=== PATIENT | female | born 1945 | race Caucasian/White ===

== ENCOUNTER → 2017-03-22 | Outpatient (CLI) | payer MEDICARE ==
[~2017-03-22] MED LIST: ALE70 PO; AMIT-106 PO; AMIT-108 PO; AMLO-96 PO; AMLO-99 PO; ATOR10TA24 PO; ATOR40TA69 PO; BUPR300T55 PO; BUTA1CAP4 PO; CHOL10005 PO; CYCL-277 PO; CYCL10TA PO; DEXL60CA6 PO; DICY20TA70 PO; DON PO; ESOM40CA42 PO; ESTR0.5T16 PO; ESTR1.2525 PO; FLU180SY9 IM; FLU45SYR25 IM ONLY; HYDR-385 PO; HYDR12.561 PO; HYOS-49 PO; HYOS0.1224 SL; LISI-362 PO; LISI5TAB25 PO; LOSA100T67 PO; LOSA50TA72 PO; MECL25TA9 PO; MELO-149 PEG; MELO-149 PO; METO-231 PO; METO-235 PO; METO50TA19 PO; MUP2T TOP; NAP500 PO; ONDA4TAB97 PO; OXYC20OR PO; OXYC20TA86 PO; PARO10TA80 PO; PNEU0.5D3 IM; PREG25 PO; PRO25 PO; PROM12.556 PO; QUE100 PO; RIFA550T PO; ROPI0.2527 PO; SERT-184 PO; SUMA100T32 PO; TOPI100T PO; TRA50 PO; TRAM-420 PO; [UNRECOGNIZED DRUG - CODE]
[2017-03-22 14:23] LABS: PLATELET COUNT, AUTOMATED 433 K/uL (150-450)
== END ==
LOC: LAB 14:11
PROVIDERS: ATTEND Internal Medicine
DX: R10.9 Unspecified abdominal pain (principal); I10 Essential (primary) hypertension
CPT/HCPCS: 36415; 82040; 82150; 82247; 82310; 82374; 82435; 82565; 82947; 83690; 84075; 84132; 84155; 84295; 84443; 84450; 84460; 84520; 85025

== ENCOUNTER → 2017-03-29 | Outpatient (CLI) | payer MEDICARE ==
--- NOTE | 2017-03-29 10:43 | RADIOLOGY IMAGING REPORT ---
FACILITY: [facility] - [place] PATIENT NAME: Fiorella Hall : 1945 MR: [id number] V: [id number] EXAM DATE: ORDERING PHYSICIAN: CECILIA LAWRENCE TECHNOLOGIST: Location: [facility] Patient: Fiorella Hall : 1945 Visit/Account:[id number] Date of Sevice: 03/29/2017 GALLBLADDER HISTORY: Back pain COMPARISON: January 30, 2014 FINDINGS: Gallbladder: Unremarkable; no stones or sludge. Liver: Negative. Common duct: Normal, 2.6 mm diameter. Pancreas: Partially obscured by bowel, visualized aspects unremarkable. Right kidney: Unremarkable as imaged measuring 9.6 cm in length Upper abdominal aorta and IVC: Patent. Ascites: None visualized. IMPRESSION: Unremarkable right upper quadrant ultrasound Report Dictated By: Esmer Porter MD at 03/29/2017 10:32 AM Report E-Signed By: Esmer Porter MD at 03/29/2017 10:39 AM WSN:[email or web address]
== END ==
LOC: US 01:56
PROVIDERS: ATTEND Nurse Practitioner Family
DX: R10.9 Unspecified abdominal pain (principal); R11.10 Vomiting, unspecified
CPT/HCPCS: 76705

== ENCOUNTER → 2017-04-07 | Outpatient (CLI) | payer MEDICARE ==
--- NOTE | 2017-04-08 11:44 | RADIOLOGY IMAGING REPORT ---
FACILITY: [facility] PATIENT NAME: JIGNA RESENDIZ : [id number] MR: [id number] V: [id number] EXAM DATE: [id number] ORDERING PHYSICIAN: CECILIA LAWRENCE TECHNOLOGIST: Nataliia Nash PROCEDURE:BILATERAL DIGITAL SCREENING MAMMOGRAM WITH CAD ASSISTED INTERPRETATION & 3D BREAST TOMOSYNTHYSIS COMPARISON:Prior mammograms 04/06/16, 04/11/14, 02/20/14, 02/16/13 INDICATIONS:SCREENING FINDINGS: Moderately dense fibroglandular tissue is seen throughout the breasts. Most of the parenchymal pattern has remained stable allowing for difference in mammographic technique & patient positioning. There is a small grouping of slightly pleomorphic calcifications Zone 3 lateral aspect of the right breast on the right CC view & appear to be in the upper portion of the right breast on the right MLO view. Spot magnification views of these calcifications recommended for further evaluation. Posterior to the mid nipple line Zone on the left CC view there is also a suggestion of faintly grouped round calcifications which spot magnification views are recommended. DIAGNOSTIC CATEGORY 0--INCOMPLETE: NEED ADDITIONAL IMAGING EVALUATION. RECOMMENDATIONS: ADDITIONAL MAMMOGRAPHIC VIEWS REQUIRED: BILATERAL BREASTS. IMPRESSION: BIRADS 0: Incomplete - need additional imaging evaluation. 1. Additional views both breasts recommended as described. Dictated by: Esmer Porter M.D. on 04/07/2017 at 15:06 Transcribed by: CATHLEEN on 04/08/2017 at 10:48 Approved by: Esmer Porter M.D. on 04/08/2017 at 11:43 [facility]
== END ==
LOC: MAMO 02:05
PROVIDERS: ATTEND Nurse Practitioner Family
DX: Z12.31 Encounter for screening mammogram for malignant neoplasm of breast (principal); R92.8 Other abnormal and inconclusive findings on diagnostic imaging of breast
CPT/HCPCS: 77063; 77067

== ENCOUNTER → 2017-04-18 | Outpatient (REF) | payer MEDICARE | LOC: ZZSENDIN 09:30 | PROVIDERS: ATTEND Nurse Practitioner Family | DX: R10.9 Unspecified abdominal pain (principal) | CPT/HCPCS: 87338 ==

== ENCOUNTER → 2017-04-18 | Outpatient (CLI) | payer MEDICARE ==
--- NOTE | 2017-04-19 10:30 | RADIOLOGY IMAGING REPORT ---
FACILITY: [facility] PATIENT NAME: JIGNA RESENDIZ : [id number] MR: [id number] V: [id number] EXAM DATE: ORDERING PHYSICIAN: CECILIA LAWRENCE TECHNOLOGIST: Nataliia Nash PROCEDURE:BILATERAL DIAGNOSTIC DIGITAL MAMMOGRAM WITH CAD AND 3D BREAST TOMOSYNTHESIS. COMPARISON:Prior mammograms dated 04/07/17, 04/06/16, 03/11/15, 02/20/14 and 02/16/13. INDICATIONS:ABN MAMMO FINDINGS: The patient received spot magnification views in the right CC, right MLO and left CC projections. Moderately dense fibroglandular tissue is seen throughout the breasts. The parenchymal pattern has remained stable when allowing for difference in mammographic technique and patient positioning. There is a small grouping of round calcifications in the upper outer quadrant of the right breast in zone 3 and may have been present on the prior study although difficult to evaluate directly due to the difference in imaging technology. There is no branching or pleomorphism on the magnified images. There is a subtle group of round calcifications posterior to mid-nipple line on the left CC view. Bilateral diagnostic mammogram recommended in six months to document stability of above findings unless clinical findings warrant more immediate attention. DIAGNOSTIC CATEGORY 3--PROBABLY BENIGN FINDING. RECOMMENDATIONS: SIX MONTH FOLLOW-UP DIAGNOSTIC MAMMOGRAM: BILATERAL BREASTS. IMPRESSION: Bi-RADS 3: A six month followup bilateral diagnostic mammogram recommended as described above. Images were reviewed with R2CAD and 3D breast tomosynthesis. Dictated by: Esmer Porter M.D. on 04/18/2017 at 16:54 Transcribed by: JOSE on 04/18/2017 at 22:07 Approved by: Esmer Porter M.D. on 04/19/2017 at 10:28 [facility]
== END ==
LOC: MAMO 01:40
PROVIDERS: ATTEND Nurse Practitioner Family
DX: R92.1 Mammographic calcification found on diagnostic imaging of breast (principal)
CPT/HCPCS: 77062; 77066

== ENCOUNTER 2017-04-21 00:14 | Day surgery (SDC) | payer MEDICARE ==
[~2017-04-21] VITALS: Ht 170.2 cm; Wt 49.0 kg
[2017-04-21] MEDS ORDERED: PROPOFOL EMUL(*) 10MG/ML 20 ML 20 ML ONE (07:10)
[2017-04-21 10:55] VITALS: BP 151/103
[2017-04-21] MEDS ORDERED: NORMOSOL R SOLN(*) 1000 ML BAG 1,000 ML IV PRN (13:00)
[2017-04-21] MEDS ORDERED: LIDOCAINE/SOD BICARB 8.4% SYR ID ONE (13:00)
[2017-04-21] MEDS ORDERED: MIDAZOLAM 2 MG/2 ML VIAL IVP PRN (13:00)
[2017-04-21 13:04] VITALS: BP 130/90
[2017-04-21 13:15] VITALS: BP 124/88
[2017-04-21 13:29] VITALS: BP 121/79
[2017-04-21 13:30] VITALS: BP 124/80
[2017-04-26] MEDS ORDERED: ATOR40TA69 PO (13:13)
== END 2017-04-21 13:50 | disposition short-term general hospital (02) ==
LOC: OR 00:14
PROVIDERS: ATTEND Internal Medicine Gastroenterology
DX: K44.9 Diaphragmatic hernia without obstruction or gangrene (principal); K20.9 Esophagitis, unspecified; K29.70 Gastritis, unspecified, without bleeding; K59.00 Constipation, unspecified; R19.7 Diarrhea, unspecified; K64.8 Other hemorrhoids; K57.30 Diverticulosis of large intestine without perforation or abscess without bleeding; L53.9 Erythematous condition, unspecified
CPT/HCPCS: 00811; 43239; 45380; 88305; 88313; 88344; J2704

== ENCOUNTER → 2017-04-22 | Outpatient (CLI) | payer MEDICARE | LOC: LAB 14:59 | PROVIDERS: ATTEND Nurse Practitioner Family | DX: R94.6 Abnormal results of thyroid function studies (principal) | CPT/HCPCS: 36415; 84439; 84443; 84480 ==

== ENCOUNTER 2017-05-09 00:59 | Outpatient (RCR) | payer MEDICARE ==
--- NOTE | 2017-05-10 13:25 | RADIOLOGY IMAGING REPORT ---
FACILITY: [facility] [place] PATIENT NAME: Fiorella Hall : 1945 MR: [id number] V: [id number] EXAM DATE: ORDERING PHYSICIAN: CECILIA LAWRENCE TECHNOLOGIST: Location: [facility] [place] Patient: Fiorella Hall : 1945 Visit/Account:[id number] Date of Sevice: 05/09/2017 Examination: Nuclear medicine thyroid uptake and scan Comparison: None. History: Subclinical hyperthyroidism Procedure: Following the uneventful administration of 0.36 mCi I-123 enteric on 05/09/2017 the patient returns for standard pinhole imaging of the thyroid and calculation of 24-hour uptake. Findings: Homogeneous iodine distribution throughout the thyroid with no hot or cold nodule. 6 hour iodine uptake is 14%. 24 hour iodine uptake is 31%. 24 hour normal range is 10-30%. IMPRESSION: 1. No hot or cold thyroid nodule. 2. Borderline elevated 24 hour iodine uptake of 31%. Report Dictated By: Gene Quintero MD at 05/10/2017 1:14 PM Report E-Signed By: Gene Quintero MD at 05/10/2017 1:21 PM WSN:[id number]
[2017-05-20] MEDS ORDERED: PROM12.556 PO (12:02)
[2017-05-25] MEDS ORDERED: PROM12.556 PO (09:26)
== END 2017-05-09 18:00 | disposition home or self-care (01) ==
LOC: NUC 00:59 → EDSTATUS 14:11 → NUC 18:00
PROVIDERS: ATTEND Nurse Practitioner Family
DX: E05.90 Thyrotoxicosis, unspecified without thyrotoxic crisis or storm (principal)
CPT/HCPCS: 78014; A9516

== ENCOUNTER → 2017-05-19 | Outpatient (CLI) | payer MEDICARE | LOC: LAB 13:11 | PROVIDERS: ATTEND Nurse Practitioner Family | DX: E05.90 Thyrotoxicosis, unspecified without thyrotoxic crisis or storm (principal); R94.6 Abnormal results of thyroid function studies | CPT/HCPCS: 36415; 83519; 84445; 86376; 86800 ==

== ENCOUNTER → 2017-08-16 | Outpatient (CLI) | payer MEDICARE ==
--- NOTE | 2017-08-16 13:45 | RADIOLOGY IMAGING REPORT ---
FACILITY: [facility] PATIENT NAME: Fiorella Hall : 1945 MR: [id number] V: [id number] EXAM DATE: ORDERING PHYSICIAN: LUANA ENRIQUEZ TECHNOLOGIST: Location: [facility] [place] Patient: Fiorella Hall : 1945 Visit/Account:[id number] Date of Sevice: 08/16/2017 L SPINE W/O CONTRAST COMPARISON: None Additional pertinent history: Low back pain for 2 years. Technique: Multiplanar multisequence lumbar spine MRI was performed without gadolinium enhancement. FINDINGS: Vertebral body heights and alignment: Mild retrolisthesis of L4 on L5 and L3 on L4. Vertebral marrow signal: Type I degenerative endplate changes at L3-L4. Distal thoracic cord and conus: Negative. The conus ends at T12-L1. Surrounding soft tissues: Negative. Inspection of the disc spaces reveal the following: L5-S1: Posterior broad-based disc protrusion with facet hypertrophic changes. No significant canal or neural foraminal narrowing. L4-L5: Mild retrolisthesis of L4 on L5. Posterior broad-based disc protrusion with facet hypertrophic changes. Moderate right-sided neural foraminal narrowing. Mild left-sided neural foraminal narrowing . No significant canal stenosis. L3-L4: Retrolisthesis of L3 on L4. Posterior broad-based disc protrusion with facet hypertrophic ascencio ges. Severe left-sided neural foraminal narrowing. Mild right-sided neural foraminal narrowing. No ca nal stenosis. L2-L3: Posterior broad-based disc protrusion with facet hypertrophic changes. No significant canal or neural foraminal narrowing. L1-L2: Negative. T12-L1: Negative. IMPRESSION: 1. Multilevel spondylitic change as discussed above. 2. Findings felt to be potentially most significant at L3-L4 with severe left-sided neural foraminal narrowing and mild right-sided neural foraminal narrowing. 3. No underlying canal stenosis. Report Dictated By: Jono Elias MD at 08/16/2017 1:38 PM Report E-Signed By: Jono Elias MD at 08/16/2017 1:42 PM WSN:[email or web address]
== END ==
LOC: MRI 01:01
PROVIDERS: ATTEND Anesthesiology Pain Medicine
DX: M47.896 Other spondylosis, lumbar region (principal); M48.061 Spinal stenosis, lumbar region without neurogenic claudication
CPT/HCPCS: 72148

== ENCOUNTER → 2017-12-27 | Outpatient (CLI) | payer MEDICARE ==
[~2017-12-27] MED LIST changes: +AMLO-111 PO; +AMLO-113 PO; -AMLO-96 PO; -AMLO-99 PO; -LOSA100T67 PO; +LOSA100T69 PO; -LOSA50TA72 PO; +LOSA50TA74 PO
--- NOTE | 2017-12-28 10:03 | RADIOLOGY IMAGING REPORT ---
FACILITY: [facility] - [place] PATIENT NAME: JIGNA RESENDIZ : [id number] MR: [id number] V: [id number] EXAM DATE: [id number] ORDERING PHYSICIAN: CECILIA LAWRENCE TECHNOLOGIST: Nataliia Nash PROCEDURE:BILATERAL DIAGNOSTIC DIGITAL MAMMOGRAM WITH CAD ASSISTED INTERPRETATION & 3D TOMOSYNTHESIS COMPARISON:Prior mammograms 04/18/17, 04/07/17, 04/06/16, 03/11/15, 02/20/14, 02/16/13. INDICATIONS:6 month follow-up FINDINGS: Moderately dense fibroglandular tissue is seen throughout the breasts. The previously described round calcifications posterior to the mid nipple line on the Left CC & MLO views appear relatively unchanged and appear to have been present at least sense March 2016. The grouping of round calcifications in the upper outer quadrant of the Right breast are also again seen may have been present previously although difficult to directly compare when compared to the prior study due to the difference in imaging technology prior to the 2018 mammogram. The remainder of the parenchymal pattern has remained stable throughout the breasts. A 6 month follow-up Right mammogram is recommended unless clinical findings warrant more immediate attention. DIAGNOSTIC CATEGORY 3--PROBABLY BENIGN FINDING. RECOMMENDATIONS: SIX MONTH FOLLOW-UP DIAGNOSTIC MAMMOGRAM: RIGHT BREAST. IMPRESSION: BIRADS 3: Probably benign finding. A 6 month follow-up Right mammogram is recommended to follow the round calcifications in the upper outer quadrant of the Right breast. Dictated by: Esmer Porter M.D. on 12/27/2017 at 15:04 Transcribed by: AIXA on 12/27/2017 at 15:41 Approved by: Esmer Porter M.D. on 12/28/2017 at 10:02 [facility]
== END ==
LOC: MAMO 00:32
PROVIDERS: ATTEND Nurse Practitioner Family
DX: R92.8 Other abnormal and inconclusive findings on diagnostic imaging of breast (principal)
CPT/HCPCS: 77062; 77066

== ENCOUNTER → 2018-01-30 | Outpatient (CLI) | payer MEDICARE ==
[~2018-01-30] MED LIST changes: +CELE-1 PO; +FLU180SY11 IM; +VARE1TAB3 PO; +VARE1TAB4 PO
== END ==
LOC: LAB 10:25
PROVIDERS: ATTEND Nurse Practitioner Family
DX: I10 Essential (primary) hypertension (principal)
CPT/HCPCS: 36415; 82310; 82374; 82435; 82565; 82947; 84132; 84295; 84520

== ENCOUNTER → 2018-05-02 | Outpatient (CLI) | payer MEDICARE ==
[~2018-05-02] MED LIST changes: -AMLO-111 PO; -AMLO-113 PO; +AMLO-125 PO; +AMLO-127 PO; +BENZ200C15 PO; -LOSA100T69 PO; +LOSA100T75 PO; -LOSA50TA74 PO; +LOSA50TA80 PO; +PRED20TA6 PO
[2018-05-02 15:29] LABS: PLATELET COUNT, AUTOMATED 395 K/uL (150-450)
[2018-05-02 15:41] LABS: LDL CHOLESTEROL 39 mg/dl
--- NOTE | 2018-05-02 16:42 | RADIOLOGY IMAGING REPORT ---
FACILITY: [facility] PATIENT NAME: Fiorella Hall : 1945 MR: [id number] V: [id number] EXAM DATE: ORDERING PHYSICIAN: CECILIA LAWRENCE TECHNOLOGIST: Location: [facility] [place] Patient: Fiorella Hall : 1945 Visit/Account:[id number] Date of Sevice: 05/02/2018 CHEST PA LAT HISTORY: Cough. Abnormal physical exam. COMPARISON: December 28, 2012. FINDINGS: Cardiomediastinal contours: The heart size is normal. Lungs and pleura: Hyperinflation of the lungs is again noted. There is mild prominence the central p ulmonary vessels. There is subtle lucency in the upper lung castellano. Correlation with past medical h istory is recommended. Bones/soft tissues: There are no findings of a fracture. There are extensive postoperative changes i nvolving the cervical spine. IMPRESSION: 1. Hyperinflation lungs. 2. No findings of an infiltrate. Postoperative changes cervical spine. Report Dictated By: Pj Larry MD at 05/02/2018 4:36 PM Report E-Signed By: Pj Larry MD at 05/02/2018 4:38 PM WSN:[email or web address]
== END ==
LOC: LAB 15:10
PROVIDERS: ATTEND Nurse Practitioner Family
DX: E78.5 Hyperlipidemia, unspecified (principal); I10 Essential (primary) hypertension; R05 Cough
CPT/HCPCS: 36415; 71046; 82040; 82247; 82306; 82310; 82374; 82435; 82465; 82565; 82947; 83718; 83970; 84075; 84132; 84155; 84295; 84443; 84450; 84460; 84478; 84520; 85025

== ENCOUNTER → 2018-05-09 | Outpatient (CLI) | payer MEDICARE | LOC: LAB 13:16 | PROVIDERS: ATTEND Nurse Practitioner Family | DX: E83.52 Hypercalcemia (principal) | CPT/HCPCS: 36415; 82310; 82330; 82652; 83519; 84160; 84165 ==

== ENCOUNTER → 2018-05-18 | Outpatient (CLI) | payer MEDICARE | LOC: LAB 14:57 | PROVIDERS: ATTEND Nurse Practitioner | DX: L57.0 Actinic keratosis (principal) | CPT/HCPCS: 88305 ==

== ENCOUNTER → 2018-07-05 | Outpatient (CLI) | payer MEDICARE ==
--- NOTE | 2018-07-07 11:25 | RADIOLOGY IMAGING REPORT ---
FACILITY: [facility] PATIENT NAME: JIGNA RESENDIZ : [id number] MR: [id number] V: [id number] EXAM DATE: [id number] ORDERING PHYSICIAN: CECILIA LAWRENCE TECHNOLOGIST: Natalie Hook PROCEDURE:RIGHT DIGITAL DIAGNOSTIC MAMMOGRAM WITH CAD ASSISTED INTERPRETATION & 3D TOMOSYNTHESIS COMPARISON:Prior mammograms dated 12/27/17, 04/18/17, 04/07/17, 04/06/16, 03/11/15, 02/20/14 INDICATIONS:abnormal Right mammogram/6 month follow up FINDINGS: The patient received spot magnification views in the Right MLO & CC projections. The round calcifications in the upper outer quadrant of the Right breast in the posterior third appear unchanged when compared to 04/07/17 & appear to have been present on prior mammograms dating back to 04/06/16. Due to the difference in imaging technique, however, from March 2016 to currently (current mammograms are performed with 3D tomosynthesis) additional 6 month follow up recommended to document stability over a 2 year period. The patient will be due for a bilateral mammogram in 6 months. DIAGNOSTIC CATEGORY 3--PROBABLY BENIGN FINDING. RECOMMENDATIONS: SIX MONTH FOLLOW-UP DIAGNOSTIC MAMMOGRAM: BILATERAL BREASTS. IMPRESSION: BIRADS 3: Probably benign finding. A 6 month follow up bilateral mammogram is recommended as described above. Dictated by: Esmer Porter M.D. on 07/05/2018 at 17:03 Transcribed by: CATHLEEN on 07/07/2018 at 10:10 Approved by: Esmer Porter M.D. on 07/07/2018 at 11:23 [facility]
== END ==
LOC: MAMO 00:32
PROVIDERS: ATTEND Nurse Practitioner Family
DX: R92.8 Other abnormal and inconclusive findings on diagnostic imaging of breast (principal)
CPT/HCPCS: 77061; 77065

== ENCOUNTER → 2018-10-17 | Outpatient (CLI) | payer MEDICARE ==
[~2018-10-17] MED LIST changes: +DULO30CA6 PO; -PROM12.556 PO; +PROM12.557 PO
--- NOTE | 2018-10-17 15:17 | RADIOLOGY IMAGING REPORT ---
FACILITY: [facility] - [place] PATIENT NAME: Fiorella Hall : 1945 MR: [id number] V: [id number] EXAM DATE: ORDERING PHYSICIAN: CECILIA LAWRENCE TECHNOLOGIST: Location: [facility] Patient: Fiorella Hall : 1945 Visit/Account:[id number] Date of Sevice: 10/17/2018 HIP RIGHT Indication: Right hip pain radiates down leg Comparison: None. Findings: Bones of the pelvis and proximal right and left femur demonstrate normal mineralization. T he right and left hip joint spaces are smooth. There is no evidence of fracture. IMPRESSION: Negative pelvis and right hip radiograph. Report Dictated By: Emeterio Torres at 10/17/2018 3:07 PM Report E-Signed By: Emeterio Torres at 10/17/2018 3:07 PM WSN:[email or web address]
== END ==
LOC: RAD 13:27
PROVIDERS: ATTEND Nurse Practitioner Family
DX: M25.551 Pain in right hip (principal)